=== PATIENT | male | born 1955 | race Caucasian/White ===

== ENCOUNTER 2017-07-08 15:41 | Emergency (ER) | payer OTHER, BC ==
[~2017-07-08] VITALS: Ht 177.8 cm; Wt 87.7 kg
[~2017-07-08 15:41] MED LIST: ANTIBOTIC; LANTUS 10100 UNITS/ SQ; LISINOPRIL-HCT1 EAC3 PO; NOVOLIN N100 UNITS/ SC; NOVOLOG PE100 UNITS/ SC
[2017-07-08 16:25] LABS: BASOPHIL (%) 0.5 % (0-1); EOSINOPHIL (%) 2.3 % (0-5); EOSINOPHIL COUNT 0.2 K/uL (0-0.3); HEMATOCRIT 30.1 % (38.0-50.0); HEMOGLOBIN 10.2 G/DL (12.5-16.6); IMMATURE GRANULOCYTE (%) 0.4 % (0.0-0.7); LYMPHOCYTE (%) 9.5 % (15-42); LYMPHOCYTE COUNT 0.8 K/uL (1.0-2.8); MCH 29.2 PG (29.0-34.0); MCHC 33.9 G/DL (30.0-36.0); MCV 86.2 FL (86-99); MONOCYTE (%) 4.3 % (3-12); MONOCYTE COUNT 0.4 K/uL (0-0.8); NEUTROPHIL COUNT 7.1 K/uL (1.8-6.4); PLATELET COUNT 297 K/uL (156-360); RBC DIS.WIDTH-CV 13.2 % (11.8-14.6); RBC DIS.WIDTH-SD 41.2 % (39-53); RED BLOOD COUNT 3.49 M/uL (4.00-5.50); WHITE BLOOD COUNT 8.5 K/uL (4.1-10.2)
[2017-07-08 16:35] LABS: ALBUMIN 3.8 g/dL (3.2-4.8); CHLORIDE 111 mEq/L (99-109); POTASSIUM 4.6 mEq/L (3.7-5.4); SODIUM 139 mEq/L (136-147)
[2017-07-08 16:38] LABS: GLUCOSE 82 mg/dL (70-99); TOTAL PROTEIN 6.8 g/dL (6.4-8.3)
[2017-07-08 16:39] LABS: TOTAL BILIRUBIN 0.5 mg/dL (0.0-1.0)
[2017-07-08 16:41] LABS: ALKALINE PHOSPHATASE 177 IU/L (3-129); CREATININE 2.2 mg/dL (0.6-1.3); GFR ESTIMATE (CALCULATED) 33 mL/min/ (58.99-99999)
[2017-07-08 16:42] LABS: UREA NITROGEN (BUN) 40 mg/dL (9-23)
[2017-07-08 16:43] LABS: AST (GOT) 39 IU/L (2-34); DIRECT BILIRUBIN 0.2 mg/dL (0.0-0.3)
[2017-07-08 16:44] LABS: ALT (GPT) 41 IU/L (3-49)
[2017-07-08 16:45] LABS: LIPASE 39 U/L (1.0-51.0)
[2017-07-08 18:10] LABS: APPEARANCE CLEAR ((CLEAR)); BILIRUBIN NEGATIVE; BLOOD SMALL; COLOR YELLOW ((YELLOW)); GLUCOSE (STRIP) 150; KETONES NEGATIVE; LEUKOCYTES NEGATIVE; NITRITE NEGATIVE; PROTEIN (STRIP) >=500; SPECIFIC GRAVITY 1.013 (1.000-1.030); UROBILINOGEN 0.2 MG/DL (0.2-1.0)
[2017-07-08 18:16] LABS: BACTERIA RARE /HPF; EPITHELIAL CELLS RARE /HPF; HYALINE CASTS 0-5 /LPF; MUCUS TRACE /LPF; RED BLOOD CELLS 0-5 /HPF (0-5); WHITE BLOOD CELLS 0-5 /HPF (0-5)
[2017-07-08 18:32] VITALS: BP 198/96
== END 2017-07-08 18:34 | disposition home or self-care (01) ==
LOC: EME 15:41
PROVIDERS: Physician Assistant
DX: E11.649 Type 2 diabetes mellitus with hypoglycemia without coma (principal); R55 Syncope and collapse; R03.0 Elevated blood-pressure reading, without diagnosis of hypertension; Z79.4 Long term (current) use of insulin
CPT/HCPCS: 80048; 80076; 81003; 82948; 83690; 85025; 93005; 99281; 99284